=== PATIENT | male | born 1990 | race Caucasian/White ===

== ENCOUNTER 2016-12-01 20:07 | Emergency (ER) | payer BC ==
[2016-12-01] MEDS ORDERED: ONDANSETRON HCL 4 MG/2 ML 4 MG in SODIUM CHLORIDE 0.9% 100 ML 100 ML IV ONE (20:55)
[2016-12-01] MEDS ORDERED: ONDANSETRON HCL 4 MG/2 ML SOL ONE (21:02)
[2016-12-01 21:05] LABS: BASOPHILS % (AUTO) 0 % (0-3); EOSINOPHILS % (AUTO) 0 % (0-9); HEMATOCRIT 49 % (39-53); MEAN CORPUSCULAR HGB CONC 35.4 gm/dl (32.0-36.0); MEAN CORPUSCULAR VOLUME 83 fL (80-100); MONOCYTES % (AUTO) 6.1 % (0-12); NEUTROPHILS % (AUTO) 88.9 % (37-80)
[2016-12-01] MEDS: SODIUM CHLORIDE 0.9% 1000ML 1,000 ML IV SCH ×3 (21:15→23:02)
[2016-12-01 21:19] LABS: ALBUMIN 3.7 gm/dl (3.4-5.0); CALCIUM 8.9 mg/dl (8.5-10.1); POTASSIUM 4.2 mMol/L (3.5-5.1)
[2016-12-01] MEDS ORDERED: ONDANSETRON HCL 4 MG/2 ML SOL IV ONE (21:21)
[2016-12-01] MEDS ORDERED: SODIUM CHLORIDE 0.9% FLUSH 10 ML SOL IV PRN (21:21)
[2016-12-01 21:42] VITALS: RESP 18
[2016-12-01] MEDS ORDERED: OSELTAMIVIR PHOSPHATE 75 MG CAP PO ONE ×2 (21:58→22:28)
[2016-12-01] MEDS ORDERED: KETOROLAC TROMETHAMINE 30 MG/ML SOL IV ONE (23:44)
[2016-12-01] MEDS ORDERED: KETOROLAC TROMETHAMINE 30 MG/ML SOL ONE (23:44)
[2016-12-01 23:55] VITALS: BP 100/62; PULSE 128; TEMP 101.3; O2SAT 98
== END 2016-12-02 00:07 | disposition home or self-care (01) ==
LOC: ED 20:07
DX: B34.9 Viral infection, unspecified (principal)
CPT/HCPCS: 99285 ×3; 85025; 87804; J1885; J2405; 36415; 80053; 96365; 96366; 96374; 96375; 99284

== ENCOUNTER 2017-03-05 10:43 | Day surgery (SDC) | payer BC ==
[2017-03-05 11:03] VITALS: RESP 16
[2017-03-05] MEDS ORDERED: TRIAMCINOLONE ACETONIDE 40 MG/ML SUS ONE (11:04)
[2017-03-05 11:34] VITALS: BP 115/67; PULSE 106; TEMP 98.6; O2SAT 94
== END 2017-03-05 11:55 | disposition home or self-care (01) ==
LOC: SURG 10:43
PROVIDERS: ATTEND Nurse Anesthetist, Certified Registered
DX: M51.16 Intervertebral disc disorders with radiculopathy, lumbar region (principal)
CPT/HCPCS: J3300